=== PATIENT | male | born 1955 | race Caucasian/White ===

== ENCOUNTER → 2018-10-04 | Outpatient (CLI) | payer BC ==
[~2018-10-04] MED LIST: IOPAMIDOL 370 MG/ML 200 ML INFUS..BTL INJ ONE; SODIUM CHLORIDE 0.9% 250ML 250 ML ONE
[2018-10-04 13:07] LABS: CREATININE, SERUM 1.22 mg/dL (0.72-1.25)
--- NOTE | 2018-10-04 14:26 | Diagnostic Imaging Report ---
EXAM: CT Abdomen and Pelvis WITHOUT AND WITH contrast INDICATION: Hematuria, query stone COMPARISON: None. TECHNIQUE: Abdomen and pelvis were scanned utilizing a multidetector helical scanner from the lung base to the pubic symphysis without and with IV contrast. Coronal and sagittal reformations were obtained. Hematuria protocol was obtained. IV CONTRAST: 150 cc of Isovue 370. ORAL CONTRAST: Water RADIATION DOSE: Total DLP: 901.1 mGy*cm COMPLICATIONS: None FINDINGS: LINES and TUBES: None. LOWER THORAX: Extensive coronary atherosclerosis. HEPATOBILIARY: Left hepatic lobe cyst. No biliary ductal dilation. The gallbladder is unremarkable. SPLEEN: No splenomegaly. PANCREAS: No focal masses or ductal dilatation. ADRENALS: No adrenal nodules KIDNEYS/URETERS: No hydronephrosis. No cystic or solid mass lesions. No stones. Nonspecific mild bilateral perinephric stranding. Contrast opacifies portions of the ureter demonstrating no evidence of urothelial lesion within the ureter. GI TRACT: No abnormal distention, wall thickening, or evidence of bowel obstruction. Appendix is normal. PELVIC ORGANS/BLADDER: The bladder is partially collapsed with some high density contents on noncontrast images which could represent hemorrhagic material. On postcontrast images the bladder is diffusely thick walled with asymmetric thickening and suspected polyp measuring 1 cm on series 6, image 158. LYMPH NODES: No lymphadenopathy. VESSELS: Moderate atherosclerotic changes within the abdominal aorta and branch vessels. PERITONEUM / RETROPERITONEUM: No free air or fluid. BONES/SOFT TISSUES: No acute bony findings. Mild degenerative changes of the visualized spine. No suspicious lytic or blastic lesions. IMPRESSION: Diffusely thick walled bladder with asymmetric right bladder wall thickening and suspected polyp measuring 1 cm. Suggest cystoscopy for further evaluation. No evidence of renal stone or hydronephrosis. Signed by: Dr. Geovanny Dye MD on 10/04/2018 2:22 PM
== END ==
LOC: CT 12:11
PROVIDERS: ATTEND Urology
DX: N39.0 Urinary tract infection, site not specified (principal)
CPT/HCPCS: 36415; 74178; 82565; 84520; J7050; Q9967

== ENCOUNTER → 2018-10-21 | Day surgery (SDC) | payer BC ==
[2018-10-15 11:20] LABS: BASOPHILS # (AUTO) 0.1 (0.0-0.1); EOSINOPHILS # (AUTO) 0.3 (0.0-0.4); EOSINOPHILS % 3.9 % (0.0-6.0); HEMOGLOBIN 13.6 g/dL (14.0-18.0); LYMPHOCYTES # (AUTO) 1.3 (1.0-3.2); LYMPHOCYTES % 18.3 % (18.0-39.1); MEAN CORPUSCULAR HGB CONC 33.2 g/dL (31-35); MEAN CORPUSCULAR VOLUME 93.4 fL (81-99); MONOCYTES # (AUTO) 0.6 (0.2-0.8); MONOCYTES % 8.8 % (4.4-11.3); NEUTROPHILS # (AUTO) 4.9 (2.1-6.9); NEUTROPHILS % 67.7 % (38.7-80.0); PLATELET COUNT 317 x10e3/uL (140-360); RED BLOOD COUNT 4.39 x10e6/uL (4.3-5.7); RED CELL DISTRIBUTION WIDTH 13.4 % (11.7-14.4)
[2018-10-15 11:45] LABS: ANION GAP 15.1 mmol/L (8-16); BLOOD UREA NITROGEN 9 mg/dL (7-26); BUN/CREATININE RATIO 8 (6-25); CALCIUM 9.4 mg/dL (8.4-10.2); CARBON DIOXIDE 24 mmol/L (22-29); CHLORIDE 106 mmol/L (98-107); CREATININE, SERUM 1.08 mg/dL (0.72-1.25); EST GLOMERULAR FILTRATION RATE > 60 ML/MIN (60-); GLUCOSE 111 mg/dL (74-118); POTASSIUM 5.1 mmol/L (3.5-5.1); SODIUM 140 mmol/L (136-145)
--- NOTE | 2018-10-15 11:50 | Diagnostic Imaging Report ---
EXAMINATION: PA and lateral views of the chest. COMPARISON: None CLINICAL HISTORY: Preop for bladder surgery DISCUSSION: Lines/tubes: None. Lungs: The lungs are well inflated and clear. There is no evidence of pneumonia or pulmonary edema. Pleura: There is no pleural effusion or pneumothorax. Heart and mediastinum: Cardiomediastinal silhouette is unremarkable. Pulmonary vasculature is normal. Bones and soft tissues: No acute bony abnormalities. Mild age-appropriate degenerative changes in the thoracic spine IMPRESSION: No acute cardiopulmonary abnormalities. Signed by: Dr. Naseem Espinal M.D. on 10/15/2018 11:47 AM
[~2018-10-21] MED LIST changes: +ASPIR 8181 MG PO; +ATORVASTATIN CA20 MG PO; +CEFTRIAXONE SOD 1 GM/NS 50 ML 50 ML IV ONE; +DEXAMETHASONE SOD PHOS INJ 4 MG/ML VIAL ONE; +FLOMAX0.4 MG PO; -IOPAMIDOL 370 MG/ML 200 ML INFUS..BTL INJ ONE; +IOPAMIDOL 610MG/1ML 300 MG/ML VIAL IV ONE; +LIDOCAINE HCL 2% LOCAL INJ 5 ML SDV VIAL INJ ONE; +METOPROLOL SUCC50 MG PO; +MIDAZOLAM HCL 2 MG/2 ML VIAL ONE; +ONDANSETRON HCL INJ 2MG/ML 2ML 2 MG/ML VIAL ONE; +PROPOFOL IV EMULSION 10 MG/ML 20 ML VIAL ONE; +SEVOFLURANE INHAL SOLN 250 ML PEN BTL ONE; -SODIUM CHLORIDE 0.9% 250ML 250 ML ONE
--- OUTSIDE RECORDS SUMMARY | 2018-10-21 09:16 | XMS REPORT ---
Author Author [facility] Address Unknown Phone Unavailable Care Team Providers Care Government Operations Consultant Name Role Phone Jamshid GALLAGHER Unavailable Unavailable Problems This patient has no known problems. Allergies, Adverse Reactions, Alerts This patient has no known allergies or adverse reactions. Medications This patient has no known medications. Results Test Description Test Time Test Comments Text Results Atomic Results Result Comments CHEST 2 VIEWS 2018-10-15 11:47:00 [place] [address] Patient Name: ARTURO CURRAN MR #: [id number] : 1955 Age/Sex: 63/M Req #: [id number] Adm Physician: Ordered by: CHARMAINE GALLAGHER MD Report #: [id number] Location: OR Room/Bed: Procedure: [id number] DX/CHEST 2 VIEWS Exam Date: 10/15/18 Exam Time: 1130 REPORT STATUS: Signed EXAMINATION: PA and lateral views of the chest. COM PARISON: None CLINICAL HISTORY: Preop for bladder surgery DISCUSSION: Lines/tubes: None. Lungs: The lungs are well inflated and clear. There is no evidence of pneumonia or pulmonary edema. Pleura: There is no pleural effusion or pneumothorax. Heart and mediastinum: Cardiomediastinal silhouette is unremarkable. Pulmonary vasculature is normal. Bones and soft tissues: No acute bony abnormalities. Mild age- appropriate degenerative changes in the thoracic spine IMPRESSION: No acute cardiopulmonary abnormalities. Signed by: Dr. Junior Espinal M.D. on 10/15/2018 11:47 AM Dictated By: JUNIOR ESPINAL MD 1147 Transcribed By: DONAL on 10/15/18 1147 COPY TO: CHARMAINE GALLAGHER MD CT ABDOMEN/PELVIS WOW 2018-10-04 14:10:00 [place] [id number] Patient Name: ARTURO CURRAN MR #: [id number] : 1955 Age/Sex: 62/M Req #: [id number] Adm Physician: Ordered by: CHARMAINE GALLAGHER MD Report #: [id number] Location: CT Room/Bed: Procedure: [id number] CT/CT ABDOMEN/PELVIS WOW Exam Date: 10/04/18 Exam Time: 1350 REPORT STATUS: Signed EXAM: CT Abdomen and Pelvis WITHOUT AND WITH contrast INDICATION: Hematuria, query stone COMPARISON: None. TECHNIQUE: Abdomen and pelvis were scanned utilizing a multidetector helical scanner from the lung base to the pubic symphysis without and with IV contrast. Coronal and sagittal reformations were obtained. Hematuria protocol was obtained. IV CONTRAST: 150 cc of Isovue 370. ORAL CONTRAST: Water RADIATION DOSE: Total DLP: 901.1 mGy*cm COMPLICATIONS: None FINDINGS: LINES and TUBES: None. LOWER THORAX: Extensive coronary atherosclerosis. HEPATOBILIARY: Left hepatic lobe cyst. No biliary ductal dilation. The gallbladder is unremarkable. SPLEEN: No splenomegaly. PANCREAS: No focal masses or ductal dilatation. ADRENALS: No adrenal nodules KIDNEYS/URETERS: No hydronephrosis. No cystic or solid mass lesions. No stones. Nonspecific mild bilateral perinephric stranding. Contrast opacifies portions of the ureter demonstrating no evidence of urothelial lesion within the ureter. GI TRACT: No abnormal distention, wall thickening, or evidence of bowel obstruction. Appendix is normal. PELVIC ORGANS/BLADDER: The bladder is partially collapsed with some high density contents on noncontrast images which could represent hemorrhagic material. On postcontrast images the bladder is diffusely thick walled with asymmetric thickening and suspected polyp measuring 1 cm on series 6, image 158. LYMPH NODES: No lymphadenopathy. VESSELS: Moderate atherosclerotic changes within the abdominal aorta and branch vessels. PERITONEUM / RETROPERITONEUM: No free air or fluid. BONES/SOFT TISSUES: No acute bony findings. Mild degenerative changes of the visualized spine. No suspicious lytic or blastic lesions. IMPRESSION: Diffusely thick walled bladder with asymmetric right bladder wall thickening and suspected polyp measuring 1 cm. Suggest cystoscopy for further evaluation. No evidence of renal stone or hydronephrosis. Signed by: Dr. Femi Radford MD on 10/04/2018 2:22 PM Dictated By: FEMI RADFORD MD 1422 Transcribed By: DONAL on 10/04/18 1422 COPY TO: CHARMAINE GALLAGHER MD
[2018-10-21 11:30] VITALS: BP 149/77
--- NOTE | 2018-10-31 22:45 | Operative Report ---
DATE OF PROCEDURE: October 21, 2018 PREOPERATIVE DIAGNOSIS: Recurrent urinary tract infections. POSTOPERATIVE DIAGNOSES: 1. Recurrent urinary tract infection. 2. Bladder neck obstruction. OPERATION PERFORMED: Cystoscopy. ANESTHESIA. General anesthesia. ESTIMATED BLOOD LOSS: Minimal. INDICATIONS: Mr. Raheel James is a 63-year-old gentleman who was recently noted to have 2 culture-proven urinary tract infections. He now presents for definitive surgical management of this problem. PROCEDURE IN DETAIL: The patient was brought into the operating room, placed in supine position, and after administration of general anesthesia, was placed in dorsal lithotomy position and prepped and draped in usual sterile fashion. Cystourethroscopy was performed using 21-Czech cystoscope. The anterior and posterior urethra were noted to be normal. There were no strictures appreciated. The prostate was short and revealed minimal lateral lobar tissue. There was, however, primary bladder neck obstruction noted with a tight circular ring seen in the region of the bladder neck. The bladder was entered with mild difficulty. Upon entrance into the bladder, the ureteral orifices were in normal anatomical position and produced clear efflux. The bladder wall was mildly trabeculated with appearance of but no iman diverticula. There were no mucosal lesions or stones identified. The bladder was then drained in its entirety and cystoscope and sheath were removed. The patient was returned to supine position and anesthesia was reversed. He was transferred to bed and taken to the postanesthesia care unit in good condition. Of note, the needle and instrument count were correct at the conclusion of the case. Job#: [id number] KAYY
== END | disposition home or self-care (01) ==
LOC: OR 09:13
PROVIDERS: ATTEND Urology
DX: N32.0 Bladder-neck obstruction (principal); N39.0 Urinary tract infection, site not specified; N32.89 Other specified disorders of bladder; I10 Essential (primary) hypertension; I44.0 Atrioventricular block, first degree; Z01.810 Encounter for preprocedural cardiovascular examination; Z01.812 Encounter for preprocedural laboratory examination; Z01.818 Encounter for other preprocedural examination; Z79.82 Long term (current) use of aspirin
CPT/HCPCS: 36415; 52000; 71046; 80048; 85025; 93005; J0696; J1100; J2001; J2250; J2405; J2704